=== PATIENT | male | born 1985 | race Asian ===

== ENCOUNTER 2024-07-29 08:19 | Outpatient (AMB) | payer OTHER, SELFPAY ==
--- NOTE | 2024-07-29 12:43 | MHC.OFFVISWM ---
VS Expanded 07/29/24 13:21 Height 6 ft 0.44 in Weight 297 lb 12 oz BMI 39.9 Intake Visit Reasons: TV Gastric Balloon BMI 39.9 Allergies No Known Allergies Allergy (Verified 07/29/24 12:49) Medication List - Last Reconciled 07/29/24 by Getachew Stevenson MD anastrozole 1 mg orally take 1 tablet by mouth once a week; aspirin 81 mg PO DAILY atorvastatin 40 mg PO BEDTIME benazepril 40 mg PO DAILY blood-glucose meter,continuous (Dexcom G7 Trimmer Loader) As directed blood-glucose sensor (Dexcom G7 Sensor device) As directed empagliflozin 25 mg PO DAILY insulin NPH isoph U-100 human 20 units subcut QPM levothyroxine 100 mcg PO DAILY metformin 1,000 mg PO BID multivitamin 1 tab PO DAILY tirzepatide (Mounjaro) 15 mg subcut QWEEK HPI HPI TV Gastric Balloon BMI 39.9: Details: Start time: 12.10pm, End time: 1.10pm ?I spent 55 minutes speaking with the patient on the phone plus an additional 5 minutes reviewing and updating records for a total of 60 minutes HPI Comments Details: Previous weight loss efforts: (Phentermine, Ozempic for 2 years, Mounjaro: 2 years in association with physician supervised keto-diet: lack of energy) Wakes up: 9am, Sleeps: 2am Breakfast: skips Lunch: 1pm (sandwich, wrap) Dinner: 7pm (rice and protein) Snacks: 9pm (cheese and crackers, chips) Exercise: Gym at the apartment building Fluids: Coffee: 2 cups/day (stevia with creamer), tea: none, soda: diet coke, juice: 1-2/month, ETOH: none PFSH Medical History (Updated 07/29/24 @ 18:55 by Getachew Stevenson MD) Low testosterone in male Hypothyroidism Hyperlipidemia Hypertension Insulin dependent type 2 diabetes mellitus BMI 39.0-39.9,adult Obesity Surgical History (Updated 07/06/24 @ 10:55 by Dasia Dupont CMA) Hx of microdiscectomy Hx of laminectomy Family History (Updated 07/06/24 @ 13:22 by Dasia Dupont CMA) Mother Diabetes Stroke History of hypertension High cholesterol CHF (congestive heart failure) Father Cancer Diabetes Stroke Social History (Updated 07/06/24 @ 13:21 by Dasia Dupont CMA) Alcohol intake: never Patient Tobacco Use Status: Never used Tobacco Physical Exam Vital Signs: BMI result Body Mass Index 39.9 Telehealth Telehealth Telehealth Platform: Telephone Location of provider rendering services: practice address Location of patient: address on file Patient Identification confirmed using: Name, : Yes Telehealth method: voice only Patient verbally consented to treatment: Yes Patient verbally consented to billing insurance company: Yes Patient informed of any privacy concerns related to visit: Yes Minutes spent on Phone/Video with Pt.: 60 Assessment & Plan Assessment & Plan (1) Obesity: Code(s): E66.9 - Obesity, unspecified Category: Medical Qualifiers: Obesity type: due to excess calories Obesity classification: adult class 2 (BMI 35 - 39.9) Serious obesity comorbidity presence: with serious comorbidity Body mass index: BMI 39.0-39.9 Qualified Code(s): E66.812 - Obesity, class 2; E66.01 - Morbid (severe) obesity due to excess calories; Z68.39 - Body mass index [BMI] 39.0-39.9, adult Plan: Extensive discussion about patient's options: 1) Proceed with the gastric balloon. I did tell him that my experience with the Orbera balloon has been mixed providing less restriction and a higher risk of intolerance and premature removal 2) Use of the Perminova edmundo following our lifestyle intervention. In combination with the Mounjaro I believe it would provide a good plan that could maximize fat loss and preserve lean mass avoiding the tiredness when he followed a keto diet with a dietitian 3) Sleeve gastrectomy with preop weight loss with the Perminova edmundo. 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
[2024-07-29 13:21] VITALS: BMI 39.9
== END 2024-07-29 19:00 | disposition home or self-care (01) ==
LOC: HO.HBS 08:19
PROVIDERS: Visit Provider Surgery
DX: E66.812 Obesity, class 2 (principal); Z68.39 Body mass index [BMI] 39.0-39.9, adult
CPT/HCPCS: 99443

== ENCOUNTER → 2024-07-29 08:19 | Outpatient (BNVA) | payer OTHER, SELFPAY | PROVIDERS: Visit Provider Surgery ==